=== PATIENT | female | born 1965 | race Caucasian/White ===

== ENCOUNTER 2017-06-22 08:08 | Day surgery (SDC) | payer BC ==
[~2017-06-22] VITALS: Ht 170.2 cm; Wt 87.6 kg
[~2017-06-22 08:08] MED LIST: LEVO88TA7 PO; SODIUM CHLORIDE 0.9% 1000ML 1,000 ML IV ONE
[2017-06-22 08:30] VITALS: BP 101/75
[2017-06-22] MEDS ORDERED: MEPERIDINE-PF 50 MG/ML SYG ONE (09:49)
[2017-06-22] MEDS ORDERED: MIDAZOLAM HCL 1 MG/ML 2ML VIAL ONE ×2 (09:49→10:04)
== END 2017-06-22 11:15 | disposition home or self-care (01) ==
LOC: DAH 08:08
PROVIDERS: ATTEND Internal Medicine Gastroenterology
DX: K59.00 Constipation, unspecified (principal); Z68.38 Body mass index [BMI] 38.0-38.9, adult; E03.9 Hypothyroidism, unspecified; Z79.899 Other long term (current) drug therapy; Z80.0 Family history of malignant neoplasm of digestive organs
CPT/HCPCS: 45378; A4606; J2175; J2250 ×2; J7030; 99152; 99153